=== PATIENT | female | born 1990 ===

== ENCOUNTER 2017-08-21 20:33 | Emergency (ER) | payer OTHER ==
--- NOTE | 2017-08-21 21:01 | C.PDOC ---
History Of Present Illness The patient presents to the ED for evaluation of right upper quadrant abdominal pain which began around 1 week ago. Patient notes her pain worsened today after eating rice and chicken. Patient reports her LMP was 910. She denies fever, chills, nausea, vomiting, diarrhea. Time Seen by Provider: 08/21/17 21:01 Chief Complaint (Nursing): Abdominal Pain History Per: Patient History/Exam Limitations: no limitations Onset/Duration Of Symptoms: Days (1 week ) Current Symptoms Are (Timing): Worse Severity: Mild Pain Scale Rating Of: 2 Location Of Pain/Discomfort: RUQ Radiation Of Pain To:: None Quality Of Discomfort: "Pain" Associated Symptoms: denies: Fever, Chills, Nausea, Vomiting Exacerbating Factors: None Alleviating Factors: None Last Bowel Movement: Today Recent travel outside of the [place]: No Additional History Per: Patient Abnormal Vaginal Bleeding: No Last Menstral Period: 07/22/17 Past Medical History Reviewed: Historical Data, Nursing Documentation, Vital Signs Vital Signs: Last Vital Signs Temp 97.3 F L 08/21/17 22:05 Pulse 78 08/21/17 22:05 Resp 18 08/21/17 22:05 BP 142/91 H 08/21/17 22:05 Pulse Ox 100 08/21/17 22:05 - Medical History PMH: Asthma, HTN Surgical History: No Surg Hx Family History: States: Unknown Family Hx - Social History Hx Tobacco Use: No Hx Alcohol Use: Yes Hx Substance Use: No - Immunization History Hx Tetanus Toxoid Vaccination: No Hx Influenza Vaccination: No Hx Pneumococcal Vaccination: No Review Of Systems Constitutional: Negative for: Fever, Chills Cardiovascular: Negative for: Chest Pain, Palpitations Respiratory: Negative for: Cough, Shortness of Breath Gastrointestinal: Positive for: Abdominal Pain (right upper quadrant ). Negative for: Nausea, Vomiting Genitourinary: Negative for: Dysuria, Frequency, Hematuria, Vaginal Discharge, Vaginal Bleeding Skin: Negative for: Rash, Lesions, Jaundice, Bruising Neurological: Negative for: Weakness, Numbness Physical Exam - Physical Exam Appears: Non-toxic, No Acute Distress, Other (morbidly obese) Skin: Warm, Dry Head: Normacephalic Eye(s): bilateral: Normal Inspection Oral Mucosa: Moist Neck: Supple Chest: Symmetrical, No Deformity, No Tenderness Cardiovascular: Rhythm Regular, No Murmur Respiratory: No Rales, No Rhonchi, No Wheezing Gastrointestinal/Abdominal: Bowel Sounds (unremarkable ), Soft, Tenderness (to right upper quadrant on palpation ), Distention, No Guarding, No Rebound Extremity: Normal ROM, Capillary Refill (less than 2 seconds ) Neurological/Psych: Oriented x3 Gait: Steady ED Course And Treatment - Laboratory Results Result Diagrams: 08/21/17 21:13 08/21/17 21:13 O2 Sat by Pulse Oximetry: 98 (on RA ) Pulse Ox Interpretation: Normal Progress Note: Bloodwork, urinalysis ordered and reviewed. Pepcid IVP, Zofran IVP, and IV Fluids administered. Patient is resting comfortably, abdomen remains soft, and patient is tolerating PO. Reevaluation Time: 23:30 Reassessment Condition: Improved Medical Decision Making Medical Decision Making: Upon provider reevaluation patient is feeling better, is medically stable, and requires no further treatment in the ED at this time. Patient will be discharged home with Rx for flagyl, naproxen . Counseling was provided and all questions were answered regarding diagnosis and need for follow up with the referred clinic. There is agreement to discharge plan. Return if symptoms persist or worsen. Disposition Counseled Patient/Family Regarding: Studies Performed, Diagnosis, Need For Followup, Rx Given - Disposition Referrals: [facility] [Outside] [facility] [Outside] Truong Fields MD [Staff Provider] - Disposition: HOME/ ROUTINE Disposition Time: 21:01 Condition: FAIR Additional Instructions: Please return if symptoms recur Prescriptions: Metronidazole [Flagyl] 500 mg PO TID #21 tablet Naproxen [Naprosyn] 1 tab PO BID PRN #15 tab PRN Reason: Pain Instructions: Abdominal Pain (ED), Pancreatitis (DC) Forms: [facility] (Bulgarian) - Clinical Impression Clinical Impression: Abdominal pain, Pancreatitis - Scribe Statement The provider has reviewed the documentation as recorded by the Scribe (Nikki Tavares) Provider Attestation: All medical record entries made by the Scribe were at my direction and personally dictated by me. I have reviewed the chart and agree that the record accurately reflects my personal performance of the history, physical exam, medical decision making, and the department course for this patient. I have also personally directed, reviewed, and agree with the discharge instructions and disposition.
[2017-08-21] MEDS ORDERED: Sodium Chloride 0.9% 1,000 ML IV ONE (21:07)
[2017-08-21 21:19] LABS: BASO # 0.1 K/uL (0.0-0.2); BASO % 1.3 % (0.0-2.0); EOS # 0.9 K/uL (0.0-0.7); EOS % 8.6 % (0.0-4.0); HEMATOCRIT 36.4 % (34.0-47.0); LYMPH # 4.1 K/uL (1.0-4.3); MEAN CORPUSCULAR HEMOGLOBIN 26.7 pg (27.0-31.0); MEAN CORPUSCULAR HGB CONC 33.8 g/dL (33.0-37.0); MEAN PLATELET VOLUME 8.7 fL (7.2-11.7); MONO # 0.6 K/uL (0.0-0.8); MONO % 6.2 % (0.0-10.0); RED CELL DISTRIBUTION WIDTH 15.4 % (11.5-14.5); WHITE BLOOD COUNT 10.4 K/uL (4.8-10.8)
[2017-08-21] MEDS ORDERED: Sodium Chloride 0.9% 1,000 ML ONE (21:19)
[2017-08-21 21:26] LABS: RBC URINE 3 /hpf (0-3); URINE BACTERIA RARE (<OCC); URINE BILIRUBIN NEGATIVE (NEGATIVE); URINE BLOOD NEGATIVE (NEGATIVE); URINE COLOR Yellow (YELLOW); URINE GLUCOSE (UA) NORMAL (Normal); URINE KETONE NEGATIVE (NEGATIVE); URINE LEUKOCYTE ESTERASE TRACE Leu/uL (Negative); URINE PROTEIN NEGATIVE (NEGATIVE); URINE UROBILINOGEN NORMAL mg/dL (0.2-1.0); WBC URINE 19 /hpf (0-5)
[2017-08-21 21:32] LABS: CHLORIDE 100 mmol/L (98-107)
[2017-08-21 21:33] LABS: SODIUM 132 mmol/L (132-148)
[2017-08-21 21:35] LABS: BILIRUBIN,TOTAL 1.1 mg/dL (0.2-1.3); CARBON DIOXIDE 21 mmol/L (22-30); GFR AFRICAN-AMERICAN > 60; TOTAL PROTEIN 8.9 g/dL (6.3-8.3)
[2017-08-21 21:36] LABS: ALKALINE PHOSPHATASE 62 U/L (38-126); ALT/SGPT 31 U/L (9-52); AST/SGOT 53 U/L (14-36); BLOOD UREA NITROGEN 14 mg/dL (7-17); CALCIUM 9.1 mg/dl (8.6-10.4); GLUCOSE,RANDOM 91 mg/dL (65-105)
[2017-08-21 21:56] LABS: INR 1.2
[2017-08-21] MEDS ORDERED: Iodixanol 320 MG/ML 100 ML BOTTLE IV ONE (22:33)
--- NOTE | 2017-08-21 23:14 | CT ---
EXAM: CT Abdomen and Pelvis With Intravenous Contrast CLINICAL HISTORY: 27 years old, female; Pain; Abdominal pain; Localized; Right upper quadrant (ruq); Additional info: Ruq pain, elevated lipase TECHNIQUE: Axial computed tomography images of the abdomen and pelvis with intravenous contrast. All CT scans at this facility use one or more dose reduction techniques, viz.: automated exposure control; ma/kV adjustment per patient size (including targeted exams where dose is matched to indication; i.e. head); or iterative reconstruction technique. Coronal and sagittal reformatted images were created and reviewed. CONTRAST: 100 mL of visipaque 320 administered intravenously. COMPARISON: No relevant prior studies available. FINDINGS: Lower thorax: Minimal atelectasis/scarring. ABDOMEN: Liver: Probable mild fatty infiltration. Gallbladder and bile ducts: No calcified stones. No ductal dilation. Pancreas: Apparent minimal haziness about head of pancreas/duodenum. Note ductal dilation. Spleen: No splenomegaly. Adrenals: No mass. Kidneys and ureters: No mass. No hydronephrosis. Stomach and bowel: Probable segmental areas of underdistention of LEFT colon. No definite mural thickening. No obstruction. Appendix: Normal caliber. No inflammation. PELVIS: Bladder: Unremarkable. Reproductive: Unremarkable as visualized. ABDOMEN and PELVIS: Intraperitoneal space: No significant fluid collection. No free air. Bones/joints: No acute fracture. Soft tissues: Unremarkable. Vasculature: Unremarkable. No aneurysm. Lymph nodes: No pathologically enlarged lymph nodes. IMPRESSION: 1. Apparent minimal haziness about head of pancreas/duodenum which may represent pancreatitis and/or duodenitis. 2. Incidental/non-acute findings are described above.
[2017-08-21 23:48] VITALS: BP 133/84; PULSE 80; RESP 20; TEMP 98.1; O2SAT 100
== END 2017-08-21 23:49 | disposition home or self-care (01) ==
LOC: C.ER 20:33
DX: K85.90 Acute pancreatitis without necrosis or infection, unspecified (principal); R10.9 Unspecified abdominal pain
CPT/HCPCS: 74177; 80053; 81001; 83690; 84703; 85025; 85610; 85730; 96361; 96374; 96375; 99285; J2405; J7040; Q9967

== ENCOUNTER 2017-09-25 07:50 | Emergency (ER) | payer OTHER ==
[2017-09-25 08:00] VITALS: O2SAT 98
--- NOTE | 2017-09-25 08:31 | C.PDOC ---
History Of Present Illness 27 year old female presents to the ED with complaints of sore throat for one day. Patient notes difficulty swallowing because "my glands feels swollen." Patient reports she feels febrile but has not taken her temperature. She had not taken pain medication. Patient denies ear pain, headache, nausea, vomiting, or other complaints at this time. Time Seen by Provider: 09/25/17 08:10 Chief Complaint (Nursing): ENT Problem History Per: Patient History/Exam Limitations: None Onset/Duration Of Symptoms: Days (1 day ) Current Symptoms Are (Timing): Still Present Anticoagulant/Antiplatlet Use?: No Recent Aspirin Use: No Past Medical History Reviewed: Historical Data, Nursing Documentation, Vital Signs Vital Signs: Last Vital Signs Temp 98.2 F 09/25/17 09:13 Pulse 81 09/25/17 09:13 Resp 17 09/25/17 09:13 BP 156/111 H 09/25/17 09:13 Pulse Ox 98 09/25/17 09:35 - Medical History PMH: Asthma, HTN Family History: States: Unknown Family Hx - Social History Hx Tobacco Use: No Hx Alcohol Use: Yes Hx Substance Use: No - Immunization History Hx Tetanus Toxoid Vaccination: No Hx Influenza Vaccination: No Hx Pneumococcal Vaccination: No Review Of Systems Constitutional: Positive for: Fever (subjective ). Negative for: Chills ENT: Positive for: Other (sore throat; feels glands are swollen ) Cardiovascular: Negative for: Chest Pain, Palpitations Respiratory: Negative for: Cough, Shortness of Breath Gastrointestinal: Negative for: Nausea, Vomiting, Abdominal Pain, Diarrhea Physical Exam - Physical Exam Appears: Non-toxic, No Acute Distress Skin: Warm, Dry, No Rash Head: Atraumatic, Normacephalic, No Tenderness Eye(s): bilateral: Normal Inspection, PERRL, EOMI Ear(s): Bilateral: Normal Nose: Normal, No Discharge Oral Mucosa: Moist Throat: Erythema (pharyngeal and tonsilar erythema ), Exudate (tonsilar ) Neck: Supple, Other (no meningial signs; positive right anterior cervical lymphnode tenderness ) Lymphatic: Adenopathy (right anterior cervical LN) Chest: Symmetrical, No Deformity Cardiovascular: Rhythm Regular, No Murmur Respiratory: No Rales, No Rhonchi, No Wheezing, Other (clear to auscultation bilaterally ) Gastrointestinal/Abdominal: Soft, No Tenderness, No Distention, No Guarding, No Rebound Pelvic: No Enlarged Uterus Extremity: Normal ROM, No Tenderness, No Deformity Neurological/Psych: Oriented x3, Normal Speech ED Course And Treatment O2 Sat by Pulse Oximetry: 98 (RA) Pulse Ox Interpretation: Normal Progress Note: Rapid strep and throat culture were ordered. Patient was given Tylenol. Medical Decision Making Medical Decision Making: Impression: throat pain Plan: Rapid strep Progress: Strep test was negative . Patient advised on follow up with PCP or clinic. Disposition Counseled Patient/Family Regarding: Diagnosis, Need For Followup, Rx Given - Disposition Referrals: Don Morales MD [Staff Provider] - Disposition: HOME/ ROUTINE Disposition Time: 08:57 Condition: STABLE Additional Instructions: Take Tylenol or Motrin alternating every 4-6 hours for Fever 100.4F or higher. Rest and drink plenty of fluids to prevent dehydration. Try vanilla ice cream to improve eating/drinking, this is cold soothing and tastes good. May also try lozenges or cepacol spray over the counter. Prescriptions: Penicillin VK [Penicillin VK Tab] 2 tab PO Q12 #28 tab Instructions: Pharyngitis (ED) Forms: Work/School/Gym Excuse, [facility] (Khmer) - POA Present On Arrival: None - Clinical Impression Clinical Impression: Pharyngitis - PA / BRICKMASON / Resident Statement MD/DO has reviewed & agrees with the documentation as recorded. - Scribe Statement The provider has reviewed the documentation as recorded by the Scribdenis Willard All medical record entries made by the Joseibdenis were at my direction and personally dictated by me. I have reviewed the chart and agree that the record accurately reflects my personal performance of the history, physical exam, medical decision making, and the department course for this patient. I have also personally directed, reviewed, and agree with the discharge instructions and disposition.
[2017-09-25 09:25] VITALS: BP 156/111; PULSE 81; RESP 17; TEMP 98.2
== END 2017-09-25 09:15 | disposition home or self-care (01) ==
LOC: C.ER 07:50
DX: J02.9 Acute pharyngitis, unspecified (principal)

== ENCOUNTER 2017-10-23 19:16 | Emergency (ER) | payer OTHER ==
[2017-10-23 19:23] VITALS: RESP 20; O2SAT 98
--- NOTE | 2017-10-23 20:47 | C.PDOC ---
History Of Present Illness Mouna Tubbs is a 27 year old female, with a past medical history of HTN and pancreatitis, who presents to the emergency department complaining of RUQ abdominal pain associated with nausea onset for x3 days. She is currently not taking any medication for current symptoms. Patient denies any vomit, diarrhea, fever, chills, vaginal discharge or vaginal bleeding. No further medical complaints. PMD: None provided. Time Seen by Provider: 10/23/17 20:07 Chief Complaint (Nursing): Abdominal Pain History Per: Patient History/Exam Limitations: no limitations Onset/Duration Of Symptoms: Days (x3) Current Symptoms Are (Timing): Still Present Location Of Pain/Discomfort: RUQ Associated Symptoms: Nausea. denies: Fever, Chills, Vomiting, Diarrhea, Other ( vaginal bleeding or discharge) Abnormal Vaginal Bleeding: No Past Medical History Reviewed: Historical Data, Nursing Documentation, Vital Signs Vital Signs: Last Vital Signs Temp 98 F 10/23/17 22:27 Pulse 82 10/23/17 22:27 Resp 20 10/23/17 22:27 BP 130/80 10/23/17 22:27 Pulse Ox 98 10/23/17 22:41 - Medical History PMH: Asthma, HTN, Pancreatitis Surgical History: No Surg Hx Family History: States: Unknown Family Hx - Social History Hx Tobacco Use: No Hx Alcohol Use: Yes Hx Substance Use: No - Immunization History Hx Tetanus Toxoid Vaccination: No Hx Influenza Vaccination: No Hx Pneumococcal Vaccination: No Review Of Systems Except As Marked, All Systems Reviewed And Found Negative. Constitutional: Negative for: Fever, Chills Gastrointestinal: Positive for: Nausea, Abdominal Pain (RUQ). Negative for: Vomiting, Diarrhea Genitourinary: Negative for: Vaginal Discharge, Vaginal Bleeding Physical Exam - Physical Exam Appears: No Acute Distress Skin: Normal Color, Warm, Dry Head: Atraumatic, Normacephalic Eye(s): bilateral: Normal Inspection, PERRL, EOMI Neck: Normal, Normal ROM, Supple Cardiovascular: Rhythm Regular Respiratory: Normal Breath Sounds, No Accessory Muscle Use Gastrointestinal/Abdominal: Tenderness (RUQ), No Guarding, No Rebound Extremity: Normal ROM, No Deformity, No Swelling Neurological/Psych: Oriented x3, Normal Speech ED Course And Treatment - Laboratory Results Result Diagrams: 10/23/17 20:53 10/23/17 20:53 O2 Sat by Pulse Oximetry: 98 (RA) Pulse Ox Interpretation: Normal - CT Scan/US US RUQ Other Rad Studies (CT/US): Read By Radiologist, Radiology Report Reviewed CT/US Interpretation: IMPRESSION: Enlarged fatty liver; in a distended gallbladder, no stones or ductal dilatation; limited evaluation of pancreas. Medical Decision Making Medical Decision Making: Initial Impression: Abdominal pain Initial Plan: --Comp Metabolic Panel --Lipase --CBC w/ differential --Pepcid 20 mg IVP --Toradol 30 mg IVP --Zofran Inj 4 mg IVP --HCG, qualitative urine --Urinalysis --Abdomen Limited [US] --reeevaluation On reevaluation, patient reports improvement of pain and feels comfortable going home. Diagnosis: abdominal pain. Disposition Counseled Patient/Family Regarding: Diagnosis, Need For Followup, Rx Given - Disposition Disposition: HOME/ ROUTINE Disposition Time: 22:42 Condition: IMPROVED Additional Instructions: follow up with your doctor in 2 days call to make an appointment take pain medication as prescribed return to hospital if symptoms worsens or progress Prescriptions: Famotidine [Pepcid] 20 mg PO BID #20 tab Naproxen [Naprosyn] 500 mg PO BID PRN #16 tab PRN Reason: Pain, Moderate (4-7) Ondansetron ODT [Zofran ODT] 4 mg PO TID PRN #12 odt PRN Reason: Nausea/Vomiting Forms: [facility] (Luxembourgish), General Discharge Instructions - Clinical Impression Clinical Impression: Abdominal pain - Scribe Statement Cedric Bellamy Provider Attestation: All medical record entries made by the Joseibe were at my direction and personally dictated by me. I have reviewed the chart and agree that the record accurately reflects my personal performance of the history, physical exam, medical decision making, and the department course for this patient. I have also personally directed, reviewed, and agree with the discharge instructions and disposition.
[2017-10-23 20:59] LABS: BASO # 0.1 K/uL (0.0-0.2); EOS # 0.6 K/uL (0.0-0.7); EOS % 6.7 % (0.0-4.0); HEMATOCRIT 36.3 % (34.0-47.0); LYMPH # 3.7 K/uL (1.0-4.3); LYMPH % 42.8 % (20.0-40.0); MEAN CELL VOLUME 79.2 fL (81.0-99.0); MEAN CORPUSCULAR HEMOGLOBIN 26.4 pg (27.0-31.0); MEAN CORPUSCULAR HGB CONC 33.3 g/dL (33.0-37.0); MEAN PLATELET VOLUME 8.7 fL (7.2-11.7); MONO # 0.7 K/uL (0.0-0.8); MONO % 7.6 % (0.0-10.0); NRBC % 0.1 % (0.0-2.0); RED CELL DISTRIBUTION WIDTH 14.6 % (11.5-14.5); WHITE BLOOD COUNT 8.5 K/uL (4.8-10.8)
[2017-10-23 21:08] LABS: RBC URINE 1 /hpf (0-3); URINE BACTERIA RARE (<OCC); URINE BILIRUBIN NEGATIVE (NEGATIVE); URINE BLOOD NEGATIVE (NEGATIVE); URINE COLOR Yellow (YELLOW); URINE GLUCOSE (UA) NORMAL (Normal); URINE KETONE NEGATIVE (NEGATIVE); URINE LEUKOCYTE ESTERASE 1+ Leu/uL (Negative); URINE PROTEIN NEGATIVE (NEGATIVE); URINE UROBILINOGEN NORMAL mg/dL (0.2-1.0); WBC URINE 15 /hpf (0-5)
[2017-10-23 21:20] LABS: ALB/GLOB RATIO 1.2 (1.0-2.1); ALKALINE PHOSPHATASE 68 U/L (38-126); ALT/SGPT 67 U/L (9-52); AST/SGOT 25 U/L (14-36); BILIRUBIN,TOTAL 0.3 mg/dL (0.2-1.3); BLOOD UREA NITROGEN 13 mg/dL (7-17); CALCIUM 8.1 mg/dl (8.6-10.4); CARBON DIOXIDE 25 mmol/L (22-30); CHLORIDE 103 mmol/L (98-107); GFR AFRICAN-AMERICAN > 60; GLUCOSE,RANDOM 88 mg/dL (65-105); POTASSIUM 3.8 mmol/L (3.6-5.2); SODIUM 136 mmol/L (132-148); TOTAL PROTEIN 7.4 g/dL (6.3-8.3)
[2017-10-23 22:27] VITALS: BP 130/80; PULSE 82; TEMP 98
--- NOTE | 2017-10-23 22:28 | US ---
EXAM: US Abdomen Limited, Right Upper Quadrant EXAM DATE/TIME: 10/23/2017 8:14 PM CLINICAL HISTORY: 27 years old, female; Pain; Abdominal pain; Generalized; Additional info: Abd pain TECHNIQUE: Real-time ultrasound of the right upper quadrant with image documentation. COMPARISON: There are no prior studies for comparison. FINDINGS: Liver: Liver appears mildly enlarged. Texture is mildly heterogeneous. There is hepatopedal flow in the main portal vein. Gallbladder: Gallbladder is only partially distended with no stones, sludge or wall thickening. Gallbladder wall measures 2.4 mm in width. Common bile duct: Common bile duct measures 3.4 mm in diameter. Pancreas: Pancreas is partially obscured by bowel gas. Right kidney: Right kidney is unremarkable. Aorta: Visualized portions of the aorta and inferior vena cava are unremarkable. IMPRESSION: Enlarged fatty liver; in a distended gallbladder, no stones or ductal dilatation; limited evaluation of pancreas Patient was not tender over the gallbladder
== END 2017-10-23 22:58 | disposition home or self-care (01) ==
LOC: C.ER 19:16
DX: R10.11 Right upper quadrant pain (principal)
CPT/HCPCS: 76705; 80053; 81001; 83690; 84703; 85025; 96374; 96375; 99284; J1885; J2405

== ENCOUNTER 2018-01-16 19:03 | Emergency (ER) | payer OTHER ==
[2018-01-16 19:18] VITALS: TEMP 97.9
--- NOTE | 2018-01-16 19:34 | C.PDOC ---
History Of Present Illness Mouna Tubbs is a 27 year old female, with a past medical history of pancreatitis, who presents to the emergency department complaining of mid epigastric and RUQ discomfort and bloating onset for x5 days. Patient is able to tolerate PO and describes the pain as dull aching, 3/10. Patient has a history of pancreatitis although she states she stopped drinking alcohol and eating fat foods. She denies any fever, chills, nausea, vomit, or diarrhea. No further medical complaints. PMD: None provided. Time Seen by Provider: 01/16/18 19:33 Chief Complaint (Nursing): Abdominal Pain History Per: Patient History/Exam Limitations: no limitations Onset/Duration Of Symptoms: Days (x5) Current Symptoms Are (Timing): Still Present Pain Scale Rating Of: 3 Location Of Pain/Discomfort: RUQ, Epigastric (mid) Radiation Of Pain To:: None Quality Of Discomfort: Dull, Aching Associated Symptoms: denies: Fever, Chills, Nausea, Vomiting, Diarrhea Past Medical History Reviewed: Historical Data, Nursing Documentation, Vital Signs Vital Signs: Last Vital Signs Temp 97.9 F 01/16/18 19:12 Pulse 85 01/16/18 19:12 Resp 20 01/16/18 19:12 BP 129/79 01/16/18 19:12 Pulse Ox 99 01/16/18 20:02 - Medical History PMH: Asthma, HTN, Pancreatitis Surgical History: No Surg Hx Family History: States: Unknown Family Hx - Social History Hx Tobacco Use: No Hx Alcohol Use: Yes Hx Substance Use: No - Immunization History Hx Tetanus Toxoid Vaccination: No Hx Influenza Vaccination: No Hx Pneumococcal Vaccination: No Review Of Systems Constitutional: Negative for: Fever, Chills Gastrointestinal: Positive for: Abdominal Pain (RUQ and mid epigastric discomfort and bloating. ). Negative for: Nausea, Vomiting, Diarrhea Physical Exam - Physical Exam Appears: Other (morbidly obese) Skin: Warm, Dry Head: Normacephalic Eye(s): bilateral: Normal Inspection, PERRL, EOMI Neck: Normal ROM Chest: Symmetrical Cardiovascular: Rhythm Regular Respiratory: No Rales, No Rhonchi, No Wheezing Gastrointestinal/Abdominal: Tenderness (RUQ), No Guarding, No Rebound Back: No CVA Tenderness Extremity: Normal ROM, No Deformity, No Swelling Neurological/Psych: Oriented x3 Gait: Steady ED Course And Treatment - Laboratory Results Result Diagrams: 01/16/18 19:45 01/16/18 19:45 O2 Sat by Pulse Oximetry: 99 (RA) Pulse Ox Interpretation: Normal Progress Note: Initial Plan: Abd & Pelvis IV Contrast Only [CT], CMP, Lipase, CBC w/ differential, Pepcid 20 mg IVP, Sodium Chloride 1,000 ml IV 1,000 mls/hr , HCG Qualitative urine, Urinalysis Reevaluation Time: 21:37 Reassessment Condition: Improved Disposition Counseled Patient/Family Regarding: Studies Performed, Diagnosis, Need For Followup, Rx Given - Disposition Referrals: [facility] [Outside] [facility] [Outside] Disposition: HOME/ ROUTINE Disposition Time: 19:34 Condition: FAIR Additional Instructions: Please return if symptoms recur Prescriptions: Dicyclomine [Dicyclomine HCl] 10 mg PO QID #20 cap Polyethylene Glycol 3350 [Miralax] 17 gm PO DAILY #270 ml Instructions: Colic (DC), Constipation, Adult (DC) Forms: [facility] (Polish) - Clinical Impression Clinical Impression: Abdominal pain, Constipation - Scribe Statement Cedric Bellamy
[2018-01-16 19:47] LABS: HCG,QUALITATIVE URINE NEGATIVE (NEGATIVE)
[2018-01-16] MEDS ORDERED: Sodium Chloride 0.9% 1,000 ML ONE (19:47)
[2018-01-16] MEDS: Sodium Chloride 0.9% 1,000 ML IV ONE (19:50)
[2018-01-16 19:51] LABS: BASO # 0.1 K/uL (0.0-0.2); BASO % 1.2 % (0.0-2.0); EOS # 0.7 K/uL (0.0-0.7); EOS % 6.9 % (0.0-4.0); HEMOGLOBIN 11.7 g/dL (11.0-16.0); LYMPH # 3.7 K/uL (1.0-4.3); LYMPH % 37.3 % (20.0-40.0); MEAN CELL VOLUME 79.6 fL (81.0-99.0); MEAN CORPUSCULAR HEMOGLOBIN 26.5 pg (27.0-31.0); MEAN CORPUSCULAR HGB CONC 33.3 g/dL (33.0-37.0); MEAN PLATELET VOLUME 8.6 fL (7.2-11.7); MONO # 0.6 K/uL (0.0-0.8); MONO % 6.1 % (0.0-10.0); NEUT # 4.8 K/uL (1.8-7.0); NEUT % 48.5 % (50.0-75.0); RBC 4.4 Mil/uL (3.80-5.20); RED CELL DISTRIBUTION WIDTH 15.9 % (11.5-14.5); WHITE BLOOD COUNT 9.9 K/uL (4.8-10.8)
[2018-01-16 19:59] LABS: SQUAMOUS EPITHIAL 24 /hpf (0-5); URINE BACTERIA RARE (<OCC); URINE BILIRUBIN NEGATIVE (NEGATIVE); URINE BLOOD NEGATIVE (NEGATIVE); URINE CLARITY Hazy (Clear); URINE COLOR Amber (YELLOW); URINE GLUCOSE (UA) NORMAL (Normal); URINE LEUKOCYTE ESTERASE NEG Leu/uL (Negative); URINE PROTEIN NEGATIVE (NEGATIVE)
[2018-01-16 20:03] LABS: ALB/GLOB RATIO 1.1 (1.0-2.1); ALBUMIN 3.7 g/dL (3.5-5.0); ALT/SGPT 35 U/L (9-52); AST/SGOT 17 U/L (14-36); BLOOD UREA NITROGEN 12 mg/dL (7-17); CALCIUM 8.3 mg/dl (8.6-10.4); GFR AFRICAN-AMERICAN > 60; GFR NON-AFRICAN AMERICAN > 60; LIPASE 75 U/L (23-300)
[2018-01-16] MEDS ORDERED: Iodixanol 320 MG/ML 100 ML BOTTLE IV ONE (20:12)
--- NOTE | 2018-01-16 21:07 | CT ---
EXAM: CT Abdomen and Pelvis With Intravenous Contrast EXAM DATE/TIME: 01/16/2018 7:54 PM CLINICAL HISTORY: 27 years old, female; Pain; Abdominal pain; Generalized; Patient HX: Pancreatitis; Additional info: Ruq abd pain, HX of pancreatitis TECHNIQUE: Axial computed tomography images of the abdomen and pelvis with intravenous contrast. All CT scans at this facility use one or more dose reduction techniques, viz.: automated exposure control; ma/kV adjustment per patient size (including targeted exams where dose is matched to indication; i.e. head); or iterative reconstruction technique. Coronal and sagittal reformatted images were created and reviewed. CONTRAST: 100 mL of VISIPAQUE administered intravenously. COMPARISON: There are no prior studies for comparison. FINDINGS: Lower thorax: Heart size is normal. There is minimal atelectasis at the lung bases. ABDOMEN: Liver: unremarkable Gallbladder and bile ducts: Gallbladder is collapsed.Common duct is unremarkable. Pancreas: Pancreas is unremarkable. Spleen: unremarkable Adrenals: unremarkable Kidneys and ureters: unremarkable Stomach and bowel: Stomach is distended with ingested material. Rotation is normal. Small bowel is mildly distended with fluid. There is no obstruction. Ileocecal region is unremarkable. Appendix and terminal ileum are unremarkable. Colon is incompletely distended which limits evaluation. Appendix: See stomach and bowel PELVIS: Bladder: unremarkable Reproductive: Uterus is unremarkable. There is prominence of both adnexa. There is a dominant follicle in the right adnexa. ABDOMEN and PELVIS: Intraperitoneal space: There is no free air or free fluid. Bones/joints: There are no acute osseous abnormalities. Soft tissues: There is a small fat containing umbilical hernia. Vasculature: Vascular structures are unremarkable. Lymph nodes: There is no pathologic adenopathy. IMPRESSION: No acute solid visceral or bowel abnormality; no CT findings of pancreatitis Additional nonemergent findings as described above.
[2018-01-16 21:49] VITALS: BP 127/78; PULSE 80; RESP 18; O2SAT 98
== END 2018-01-16 21:57 | disposition home or self-care (01) ==
LOC: C.ER 19:03
DX: K59.00 Constipation, unspecified (principal); R10.9 Unspecified abdominal pain
CPT/HCPCS: 74177; 80053; 81001; 83690; 84703; 85025; 96361; 96374; 99284; J7040; Q9967

== ENCOUNTER 2018-03-30 23:49 | Emergency (ER) | payer OTHER ==
[2018-03-31 00:40] VITALS: TEMP 98.1; O2SAT 99
[2018-03-31] MEDS ORDERED: DiphenhydrAMINE 50 mg/ml Inj IVP STA (01:22)
[2018-03-31] MEDS ORDERED: DiphenhydrAMINE 50 mg/ml Inj ONE (01:37)
--- NOTE | 2018-03-31 02:43 | C.PDOC ---
History Of Present Illness 28 year old female presents to the ED c/o frontal headache for the past 6 days. Patient reports symptoms initially improved with excedrin but its no longer helping. Patient denies fever, chills, nausea, vomit, photophobia, URI symptoms , weakness, numbness. Time Seen by Provider: 03/31/18 00:51 Chief Complaint (Nursing): Headache History Per: Patient History/Exam Limitations: no limitations Onset/Duration Of Symptoms: Days (6) Current Symptoms Are (Timing): Still Present Quality: "Pain" Associated Symptoms: denies: Photophobia, Blurred Vision, Nausea, Vomiting Recent travel outside of the [place]: No Additional History Per: Patient Past Medical History Reviewed: Historical Data, Nursing Documentation, Vital Signs Vital Signs: Last Vital Signs Temp 98.1 F 03/31/18 02:47 Pulse 63 03/31/18 02:47 Resp 16 03/31/18 02:47 BP 105/65 03/31/18 02:47 Pulse Ox 99 03/31/18 02:47 - Medical History PMH: Asthma, HTN, Pancreatitis Surgical History: No Surg Hx Family History: States: Unknown Family Hx - Social History Hx Tobacco Use: No Hx Alcohol Use: Yes Hx Substance Use: No - Immunization History Hx Tetanus Toxoid Vaccination: No Hx Influenza Vaccination: No Hx Pneumococcal Vaccination: No Review Of Systems Constitutional: Negative for: Fever, Chills Eyes: Negative for: Vision Change Cardiovascular: Negative for: Chest Pain Respiratory: Negative for: Shortness of Breath Skin: Negative for: Rash Neurological: Positive for: Headache. Negative for: Weakness, Numbness, Dizziness Physical Exam - Physical Exam Appears: Non-toxic, No Acute Distress Skin: Normal Color, Warm, Dry Head: Atraumatic, Normacephalic, No Tenderness Eye(s): bilateral: Normal Inspection Oral Mucosa: Moist Neck: Normal ROM, Supple Chest: Symmetrical Cardiovascular: Rhythm Regular, No Murmur Respiratory: Normal Breath Sounds, No Rales, No Rhonchi, No Wheezing Gastrointestinal/Abdominal: Soft, No Tenderness, No Guarding, No Rebound Extremity: Normal ROM Neurological/Psych: Oriented x3, Normal Speech, Normal Motor, Normal Sensation Gait: Steady ED Course And Treatment O2 Sat by Pulse Oximetry: 99 (ON RA) Pulse Ox Interpretation: Normal Progress Note: Plan: - Benadryl 25 mg IVP. - Reglan 10 mg IVP. - Toradol 30 mg IVP. On reassessment, patient is resting comfortably, is tolerating PO, and pain has improved. Patient has no neurologic deficit, photophobia, rash, fever, or nuchal rigidity. Patient was instructed to follow up with physician/clinic in 1-2 days. Disposition Counseled Patient/Family Regarding: Diagnosis, Need For Followup, Rx Given - Disposition Disposition: HOME/ ROUTINE Disposition Time: 02:38 Condition: STABLE Additional Instructions: Please follow up with PMD Take meds as directed Return to ER if worse Prescriptions: Acetaminophen/Butalbital/Caf [Fioricet] 1 - 2 tab PO TID PRN #20 tab PRN Reason: Headache Ibuprofen [Motrin] 600 mg PO Q6H #20 tab Instructions: Headache, Adult (DC) Forms: [facility] (Chinese) - Clinical Impression Clinical Impression: Headache, Migraine - PA / [employer] / Resident Statement MD/DO has reviewed & agrees with the documentation as recorded. - Scribe Statement The provider has reviewed the documentation as recorded by the Scribe Lee Ortega All medical record entries made by the Scribe were at my direction and personally dictated by me. I have reviewed the chart and agree that the record accurately reflects my personal performance of the history, physical exam, medical decision making, and the department course for this patient. I have also personally directed, reviewed, and agree with the discharge instructions and disposition.
[2018-03-31 02:48] VITALS: BP 105/65; PULSE 63; RESP 16
== END 2018-03-31 02:57 | disposition home or self-care (01) ==
LOC: C.ER 23:49
DX: G43.909 Migraine, unspecified, not intractable, without status migrainosus (principal)
CPT/HCPCS: 96374; 96375; 99284; J1200; J1885; J2765